=== PATIENT | female | born 1960 | race Asian ===

== ENCOUNTER → 2018-10-31 10:40 | Outpatient (CLI) | payer OTHER, SELFPAY ==
[2018-10-31 10:41] VITALS: BMI 21.6
--- NOTE | 2018-10-31 10:43 | RAD_ITS ---
STUDY: X-RAY - LEFT HAND REASON FOR EXAM: Female, 58 years old. Pain. TECHNIQUE: 3 view(s) of the hand. COMPARISON: None. FINDINGS: Normal radiocarpal articulation. Normal distal radioulnar joint. Normal visualized carpal bones. Normal carpal articulations Normal carpometacarpal articulation of the thumb. Normal second through fifth carpometacarpal joints. Normal metacarpi. Normal metacarpophalangeal joint of the thumb. Normal interphalangeal joint of the thumb. Normal proximal and distal phalanges of the thumb. Normal metacarpophalangeal joints of the second through fifth fingers. Normal proximal and distal interphalangeal joints of the second through fifth fingers. Normal phalanges of the second through fifth fingers. The soft tissue structures are unremarkable. RAD/Hand Min 3 Views IMPRESSION: Normal x-ray examination of the hand. Electronically Signed: Yan Yen, at 11:02 EDT , Service support ,
== END ==
PROVIDERS: Referring Provider Physician Assistant; Visit Provider Physician Assistant
DX: S63.611A Unspecified sprain of left index finger, initial encounter (principal); X58.XXXA Exposure to other specified factors, initial encounter; Y93.9 Activity, unspecified; Y92.9 Unspecified place or not applicable; Y99.9 Unspecified external cause status
CPT/HCPCS: 73130

== ENCOUNTER → 2018-11-22 11:26 | Outpatient (CLI) | payer OTHER, SELFPAY ==
[2018-10-31 10:41] VITALS: BMI 21.6
[2018-11-22 14:05] LABS: Absolute Lymphocyte Count 1.87 X10^3/uL (0.83-4.51); Absolute Neutrophil Count 2.2 X10^3/uL (2.0-7.7); Basophil# 0.02 X10^3/uL; Basophil% 0.4 % (0-1); Eosinophil# 0.03 X10^3/uL; Eosinophils% 0.7 % (0-5); Hematocrit 36.2 % (37-47); Hemoglobin 11.5 g/dL (12.0-15.0); Lymphocyte # 1.87 X10^3/ul (4.0); Lymphocyte % 41.9 % (19-41); Mean Corp Hgb Conc 31.8 g/dL (32-36); Mean Corpuscular Hgb 29.3 pg (27.0-32.0); Mean Corpuscular Volume 92.3 fL (81-99); Mean Platelet Vol. 10.2 fl (6.2-12.0); Monocyte# 0.31 X10^3/uL; NRBC Flagged by Analyzer 0 % (0-5); Neutrophil # 2.22 X10^3/uL (2.7-7.7); Neutrophil % 49.8 % (47-70); Platelet Count 174 K/mm3 (150-450); RBC Distribution Width CV 11.9 % (11.6-14.6); RBC Distribution Width SD 40.3 fl (35.1-43.9); Red Blood Count 3.92 M/mm3 (4.2-5.4); White Blood Count 4.5 K/mm3 (4.4-11.0)
[2018-11-22 14:21] LABS: Vitamin D,25 Hydroxy 25.2 ng/mL (29.95-100.01)
[2018-11-22 14:31] LABS: ALB/GLOB Ratio 1.1 RATIO (0.9-2.4); AST(SGOT) 20 U/L (15-37); Alanine Aminotransfer ALT/SGPT 27 U/L (13-56); Albumin, Serum 3.9 g/dL (3.2-5.0); Alkaline Phosphatase 87 U/L (45-117); Anion Gap 6 (5-15); BUN 23 mg/dL (7-18); BUN/Creat Ratio 28.6 RATIO (10-20); Calcium,Total 8.7 mg/dL (8.5-10.1); Chloride 108 mmol/L (98-107); Cholesterol 203 mg/dL (200); EST Glomerular Filtration Rate 78 mL/min (>60); Est Glom Filt Rate - Afr Amer 95 mL/min (>60); Globulin 3.7 g/dL (2.2-4.2); Glucose 97 mg/dL (74-106); High Density Lipoprotein 38 mg/dL; Protein, Total 7.6 g/dL (6.4-8.2); Sodium Level 141 mmol/L (136-145); Thyroid Stim Hormone (TSH) 3.28 uIU/mL (0.358-3.74); Triglycerides 232 mg/dL; Very Low Density Lipoprotein 46 mg/dL (5-40)
== END ==
PROVIDERS: Family Provider Family Medicine; PCP Family Medicine; Referring Provider Family Medicine; Visit Provider Family Medicine
DX: R30.0 Dysuria (principal); R12 Heartburn; Z13.220 Encounter for screening for lipoid disorders; Z13.29 Encounter for screening for other suspected endocrine disorder; Z13.21 Encounter for screening for nutritional disorder
CPT/HCPCS: 36415; 80053; 80061; 82306; 84443; 85025; 87086; 87088

== ENCOUNTER → 2019-01-23 08:26 | Outpatient (CLI) | payer OTHER, SELFPAY ==
[2018-10-31 10:41] VITALS: BMI 21.6
--- NOTE | 2019-01-23 08:31 | RAD_ITS ---
STUDY: X-RAY - ESOPHAGUS (BARIUM SWALLOW) WITH FLUOROSCOPY REASON FOR EXAM: Female, 58 years old. This patient. Gastroesophageal reflux. TECHNIQUE: 18 view(s) of the esophagus were obtained following swallowing of barium. FLUOROSCOPY TIME (if supplied): (0:31) minutes/seconds COMPARISON: None. FINDINGS: There is no demonstrated esophageal foreign body. There is no demonstrated stricture or mucosal abnormality. Normal gastroesophageal junction, without a demonstrated hiatal hernia. The patient ingested a 12 mm tablet of barium without any difficulty. Normal visualized aortic arch and descending thoracic aorta. Normal visualized pulmonary parenchyma. Normal visualized osseous structures of the thorax. RAD/Esophagus Only IMPRESSION: Normal plain film x-ray examination (barium swallow) of the esophagus. Electronically Signed: Yan Yen, at 15:18 EST , Service support ,
== END ==
PROVIDERS: Family Provider Family Medicine; PCP Family Medicine; Referring Provider Internal Medicine Gastroenterology; Visit Provider Internal Medicine Gastroenterology
DX: R12 Heartburn (principal)
CPT/HCPCS: 74220

== ENCOUNTER 2023-01-15 11:14 | Emergency (ER) | payer OTHER, SELFPAY ==
[2023-01-15 11:15] VITALS: BP 145/96; PULSE 108; RESP 16; TEMP 36.3; O2SAT 99; BMI 23.4
--- NOTE | 2023-01-15 11:47 | EX.ED.GENINJ ---
HPI <NINO Castillo - Last Filed: 01/15/23 12:04> History of Present Illness Chief Complaint: Laceration Narrative Narrative: 62-year-old female works at the [employer] and was chopping onions when she sustained a laceration to her left middle finger. Bleeding is controlled. No weakness or paresthesias. Last tetanus unknown. She is right-hand dominant. PFSH <NINO Castillo - Last Filed: 01/15/23 12:04> [facility] Medical History unable to obtain Allergy/AdvReac Type Severity Reaction Status Date / Time No Known Allergies Allergy Verified 01/15/23 11:18 Social History Smoking Status: Never smoker ROS <NINO Castillo - Last Filed: 01/15/23 12:04> ROS ED ROS Narrative Neuro: Negative for motor/sensory dysfunction. Skin: Positive for wound. Musc: Negative for joint pain, swelling. Heme: Negative for easy bruising, bleeding, lymphadenopathy. EXAM <NINO Castillo Last Filed: 01/15/23 12:04> Physical Exam Narrative Exam Narrative: CONST: Patient sitting in no acute distress. EYES: Normal inspection. EXTREMITIES: Laceration of left middle finger?vertical laceration of the nail along the edge. The nail still firmly adhered and there is no subungual hematoma. There is also a approximated flap laceration along the radial aspect of the nail fold. There is no active bleeding, full range of motion of all joints, no bony tenderness, brisk cap refill. NEURO: Oriented x4. PSYCH: Normal affect. Const Vital Signs: 01/15/23 11:15 Temperature 97.4 F L Temperature Source Temporal Pulse Rate 108 H Respiratory Rate 16 Blood Pressure 145/96 H Blood Pressure Mean 112 Pulse Ox 99 Oxygen Delivery Method Room Air <Dr. Arvind Penn, DO - Last Filed: 01/15/23 12:22> Physical Exam Const Vital Signs: 01/15/23 11:15 Temperature 97.4 F L Temperature Source Temporal Pulse Rate 108 H Respiratory Rate 16 Blood Pressure 145/96 H Blood Pressure Mean 112 Pulse Ox 99 Oxygen Delivery Method Room Air MDM <NINO Castillo - Last Filed: 01/15/23 12:04> MDM MDM Narrative Medical decision making narrative: Patient has a workplace injury with a laceration to her left middle finger. There is a well adhered flap laceration of the distal finger in a near nail laceration along the lateral aspect of the nail. The nail is firmly adhered. It does not need removed or repaired. She is neurovascularly intact and does not require x-rays. Wound was cleansed and bandaged as it is not amenable to sutures. Tetanus was updated. She was given limited use of left hand for 1 week and will follow-up with occupational health. She was discharged in stable condition. <Dr. Arvind Penn, DO - Last Filed: 01/15/23 12:22> [facility] MDM Narrative Medical decision making narrative: Patient has a workplace injury with a laceration to her left middle finger. There is a well adhered flap laceration of the distal finger in a near nail laceration along the lateral aspect of the nail. The nail is firmly adhered. It does not need removed or repaired. She is neurovascularly intact and does not require x-rays. Wound was cleansed and bandaged as it is not amenable to sutures. Tetanus was updated. She was given limited use of left hand for 1 week and will follow-up with occupational health. She was discharged in stable condition. This patient was seen with a PA/PUBLIC ADMINISTRATION PROFESSOR Individually assessed they patient including history and physical. I have reviewed everything on the chart that is available and agree with the documentation provided by the PA/PUBLIC ADMINISTRATION PROFESSOR including discussion about the assessment, treatment plan, discussion, and return precautions. Patient has flap laceration on the distal nail. Nail is adhered. No significant bleeding. No bony tenderness. I do not believe we need any imaging. Patient does not need sutures. Tetanus updated today. Wound care instructions and return precaution discussed. Discharge Plan Triage Chief Complaint: Laceration ED Midlevel Provider: Antonietta Thapa ED Provider: Arvind Penn Dx/Rx/DC Orders Clinical Impression: Laceration of left middle finger Instructions: ED Laceration Extremity Primary Care Provider: Otto Wallace Referrals: NOT,DEFINED [Non-Staff] - Activity Restrictions/Additional Instructions: Keep clean and covered until it heals. Follow-up with occupational health Disposition Disposition: Home, Self Care
[2023-01-15] MEDS: Ibuprofen 600 MG Tablet PO (11:55)
[2023-01-15] MEDS: Diphth,Pertuss(Acell),Tet Vac 0.5 ML Vial IM (11:56)
== END 2023-01-15 12:27 | disposition home or self-care (01) ==
PROVIDERS: Emergency Provider Student in an Organized Health Care Education/Training Program; PCP Family Medicine; Visit Provider Student in an Organized Health Care Education/Training Program
DX: S61.213A Laceration without foreign body of left middle finger without damage to nail, initial encounter (principal); Z23 Encounter for immunization; X58.XXXA Exposure to other specified factors, initial encounter
CPT/HCPCS: 90471; 90715; 99282

== ENCOUNTER → 2023-03-15 | Outpatient (CLI) | payer OTHER, SELFPAY ==
--- NOTE | 2023-03-15 12:42 | RAD_ITS ---
INDICATION: NASAL CONGESTION EXAMINATION/TECHNIQUE: X-RAY - XR Sinuses Paranasal Min 3 Views COMPARISON: No relevant prior comparison study available FINDINGS: Mild mucosal thickening of the left maxillary sinus. There are no air-fluid levels. Soft tissue density overlying the right globe. Right frontal sinus better evaluated by CT scan The regional bones are grossly intact. RAD/Sinuses min 3 Views IMPRESSION: 1. Mild mucosal thickening of the left maxillary sinus. 2. Soft tissue density/mass overlying the right globe and right frontal sinus. Further evaluation with CT scan of the sinuses might be of value. Electronically Signed: Ed Zamorano MD at 13:12 EST ,
[2023-03-15 15:32] LABS: Absolute Lymphocyte Count 2.78 X10^3/uL (0.83-4.51); Basophil# 0.01 X10^3/uL; Basophil% 0.2 % (0-1); Eosinophil# 0.05 X10^3/uL; Hematocrit 36.4 % (37-47); Hemoglobin 11.5 g/dL (12.0-15.0); Lymphocyte # 2.78 X10^3/ul (0.83-4.51); Lymphocyte % 53.3 % (19-41); Mean Corp Hgb Conc 31.6 g/dL (32-36); Mean Corpuscular Hgb 28.8 pg (27.0-32.0); Mean Platelet Vol. 9.4 fl (6.2-12.0); Monocyte# 0.39 X10^3/uL; Monocyte% 7.5 % (0-10); NRBC Flagged by Analyzer 0 % (0-5); Neutrophil # 1.98 X10^3/uL (2.7-7.7); Neutrophil % 37.8 % (47-70); Platelet Count 217 K/mm3 (150-450); RBC Distribution Width CV 12.3 % (11.6-14.6); RBC Distribution Width SD 40.6 fl (35.1-43.9); White Blood Count 5.2 K/mm3 (4.4-11.0)
[2023-03-15 15:58] LABS: Erythrocyte Sedimentation Rate 24 mm/hr (0-30)
[2023-03-15 16:11] LABS: Vitamin D,25 Hydroxy 35.3 ng/mL
[2023-03-15 16:28] LABS: Anion Gap 5 (5-15); BUN 14 mg/dL (7-18); Calcium,Total 9.4 mg/dL (8.5-10.1); Chloride 109 mmol/L (98-107); Creatinine, Serum 0.93 mg/dL (0.55-1.02); EST Glomerular Filtration Rate 65 mL/min (>60); Est Glom Filt Rate - Afr Amer 79 mL/min (>60); Glucose 81 mg/dL (74-106); Potassium 3.7 mmol/L (3.5-5.1); Sodium Level 140 mmol/L (136-145); Thyroid Stim Hormone (TSH) 1.44 uIU/mL (0.358-3.74)
== END | disposition home or self-care (01) ==
PROVIDERS: PCP Family Medicine; Referring Provider Family Medicine; Visit Provider Family Medicine
DX: R09.81 Nasal congestion (principal); R42 Dizziness and giddiness; E55.9 Vitamin D deficiency, unspecified
CPT/HCPCS: 36415; 70220; 80048; 82306; 84443; 85025; 85652

== ENCOUNTER → 2023-04-07 | Outpatient (CLI) | payer OTHER, SELFPAY ==
--- NOTE | 2023-04-07 07:47 | CT_ITS ---
STUDY: CT FACIAL BONES WITH CONTRAST REASON FOR EXAM: Female, 63 years old. Other specified disorders of brain. Soft tissue density seen on radiographs. RADIATION DOSAGE (If Supplied By Facility): CTDIvol = ( 29.38 ) mGy, DLP = ( 723.76 ) mGycm TECHNIQUE: The patient was scanned in a multi detector CT scanner. Transaxial imaging was performed following the intravenous administration of IV 100mL Isovue-370. Sagittal and coronal images were reconstructed. Individualized dose optimization techniques were used for this CT. COMPARISON: None. FINDINGS: Normal soft tissue structures. Normal orbital ritchie and orbital contents. Normal nasal bones and anterior nasal spine. Normal facial bones. There is no demonstrated fracture. Normal visualized paranasal sinuses. CT/Sinus/Facial Bone WITH Contras IMPRESSION: Normal enhanced CT of the facial bones. Electronically Signed: Yan Yen MD at 9:44 EST ,
== END | disposition home or self-care (01) ==
LOC: CT 07:46
PROVIDERS: PCP Family Medicine; Referring Provider Family Medicine; Visit Provider Family Medicine
DX: G93.89 Other specified disorders of brain (principal)
CPT/HCPCS: 70487; Q9967

== ENCOUNTER → 2025-01-15 | Outpatient (CLI) | payer OTHER, SELFPAY ==
[2025-01-15 09:59] LABS: Mucous, Urine 0 SEEN /hpf (<or=2+)
[2025-01-15 12:25] LABS: Hematocrit 36.7 % (37-47); Hemoglobin 11.7 g/dL (12.0-15.0); Mean Corp Hgb Conc 31.9 g/dL (32-36); Mean Corpuscular Volume 90.8 fL (81-99); Mean Platelet Vol. 10.4 fl (6.2-12.0); Platelet Count 175 K/mm3 (150-450); RBC Distribution Width CV 12.2 % (11.6-14.6); RBC Distribution Width SD 40.7 fl (35.1-43.9); Red Blood Count 4.04 M/mm3 (4.2-5.4); White Blood Count 4.0 K/mm3 (4.4-11.0)
[2025-01-15 12:28] LABS: Color, Urine Yellow (Yellow); Glucose, Dipstick Normal (Normal); Ketone-Dipstick Negative (Negative); Leukocyte Esterase-Dipstick Negative /ul (Negative); Nitrite-Dipstick Negative (Negative); Occult Blood-Urine 25 /ul (Negative); Protein-Dipstick 15 mg/dl (Negative); Specific Gravity, Urine 1.020 (1.002-1.030); Urine Bilirubin Dipstick Negative (Negative)
[2025-01-15 12:36] LABS: Squamous Epithelial Cells - UA 0-5 SEEN /hpf (5-10)
[2025-01-15 12:37] LABS: Red Blood Cells-Urine 0-5 SEEN /hpf (0-5)
[2025-01-15 13:31] LABS: AST(SGOT) 21 U/L (<=31); Alanine Aminotransfer ALT/SGPT 16 U/L (<=34); Albumin, Serum 4.5 g/dL (3.4-4.8); Alkaline Phosphatase 68 U/L (35-104); Anion Gap 12 (5-15); BUN 15 mg/dL (4-19); BUN/Creat Ratio 18.7 RATIO (10-20); Calcium,Total 9.5 mg/dL (7.6-11.0); Carbon Dioxide 23.9 mmol/L (21.0-32.0); Chloride 106 mmol/L (98-108); Cholesterol 260 mg/dL (<=200); Globulin 3.2 g/dL (2.2-4.2); Glucose 103 mg/dL (70-99); Low Density Lipoprotein Calc. 191 mg/dL; Potassium 4.0 mmol/L (3.3-5.1); Triglycerides 113 mg/dL; Very Low Density Lipoprotein 23 mg/dL (5-40); Vitamin D,25 Hydroxy 33.6 ng/mL (30-100); cholesterol:hdl ratio screen 5.28
== END | disposition home or self-care (01) ==
PROVIDERS: PCP Family Medicine; Visit Provider Family Medicine
DX: R35.0 Frequency of micturition (principal); R53.83 Other fatigue; Z13.220 Encounter for screening for lipoid disorders; Z83.79 Family history of other diseases of the digestive system
CPT/HCPCS: 36415; 80053; 80061; 81001; 82306; 84443; 85027; 87086; 87088

== ENCOUNTER → 2025-02-14 | Outpatient (CLI) | payer OTHER, SELFPAY ==
--- NOTE | 2025-02-14 14:35 | CT_ITS ---
PROCEDURE: LIMITED CHEST CT CARDIAC ONLY 02/14/2025 REASON FOR EXAM: ELEVATED LIPIDS TECHNIQUE: Procedure Code: [id number] Modality: CT Procedure: LIMITED CHEST CT CARDIAC ONLY Coronal and Sagittal reconstruction series were provided. CONTRAST: None. One or more dose reduction techniques were used (e.g., Automated exposure control, adjustment of the mA and/or kV according to patient size, use of iterative reconstruction technique). RADIATION DOSE SUMMARY: CTDlvol: 12.19 mGy DLP: 195 mGycm COMPARISON: None. FINDINGS: Bilateral breast implants are noted. Left adrenal nodule is noted measuring 1.5 cm, probably benign adenoma. No follow-up is needed. Minimal bilateral basilar atelectatic pulmonary changes. Mild diffuse spondylosis. Normal unenhanced main pulmonary artery and right and left pulmonary arteries. Normal bilateral peripheral pulmonary arteries. Normal thoracic aorta and visualized great vessels. There is no demonstrated aortic aneurysm. Normal heart and pericardium. Normal mediastinum. Normal hilar regions. Normal visualized trachea and bronchi. The remaining lungs are well expanded. Normal remaining pulmonary parenchyma. Normal pleura. Normal remaining visualized upper abdomen. CT/Limited Chest CT Cardiac Only IMPRESSION: Bilateral breast implants are noted. Left adrenal nodule is noted measuring 1.5 cm, probably benign adenoma. No fol low-up is needed. Minimal bilateral basilar atelectatic pulmonary changes. Mild diffuse spondylosis. Reading Location: [place] [id number]
--- OUTSIDE RECORDS SUMMARY | 2025-02-14 14:37 | XMS RPT_ITS | CCD ---
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 Name Role Phone Marques Wallace Primary Care Unavailable Marques Wallace Attending Unavailable Marques Wallace Referring Unavailable Marques Wallace Primary Care Unavailable Marques Wallace Attending Unavailable Marques Wallace Referring Unavailable Arvind Penn Attending Unavailable Marques Wallace Primary Care Unavailable Medications Current Medications Medication Drug Class(es) Dates Sig (Normalized) Sig (Original) esomeprazole 20 mg delayed release oral capsule (2 sources) Proton Pump Inhibitor Start: 10-31-2018 take 1 capsule by mouth once daily Esomeprazole Magnesium (Nexium) 20 mg capsule,delayed release(DR/EC) Active 20 MG PO DAILY October 30, 2018 11:00pm Problems Active Problems Problem Classification Problem Date Documented Da te Episodic/Chronic Open wounds of extremities (2 sources) Laceration of left middle finger; Translations: [Laceration without foreign body of left middle finger without damage to nail, initial encounter] Onset: 12-01-2023 04-03-2023 Episodic Other connective tissue disease (2 sources) Hand pain; Translations: [Pain in left hand] 10-31-2018 Episodic Other eye disorders (2 sources) Pain around eye; Translations: [Other specified disorders of eyelid] 10-31-2018 Episodic Other nervous system disorders (1 source) Other specified disorders of brain; Translations: [Other specified disorders of brain] Onset: 10-09-2023 Chronic Past or Other Problems Problem Classification Problem Date Documented Da te Episodic/Chronic Other upper respiratory disease (1 source) Nasal congestion; Translations: [Nasal congestion] Onset: 03-20-2023 Episodic Results Test Name Value Interpretation Reference Range Facility Sinus/Facial Bone WITH Contr ason 04-07-2023 Sinus/Facial Bone WITH Contras [facility] Imaging Services [address] [place] [address] Sinus/Facial Bone WITH Contras MR#: [id number] Acct: [id number] Name: JOE MCCOY Rep #: [id number] : 1960 F 63 From: Yan metzger MD PCP: Dr. Otto Wallace MD Status: REG CLI Study: Sinus/Facial Bone WITH Contras Date of Exam: 0 04/07/23 Exam# [id number] Ordering Dr: Otto Wallace MD [id number] STUDY: CT FACIAL BONES WITH CONTRAST REASON FOR EXAM: Female, 63 years old. Other specified disorders of brain. Soft tissue density seen on radiographs. RADIATION DOSAGE (If Supplied By Facility): CTDIvol = ( 29.38 ) mGy, DLP = ( 723.76 ) mGycm TECHNIQUE: The patient was scanned in a multi detector CT scanner. Transaxial imaging was performed following the intravenous administration of IV 100mL Isovue-370. Sagittal and coronal images were reconstructed. Individualized dose optimization techniques were used for this CT. COMPARISON: None. FINDINGS: Normal soft tissue structures. Normal orbital ritchie and orbital contents. Normal nasal bones and anterior nasal spine. Normal facial bones. There is no demonstrated fracture. Normal visualized paranasal sinuses. CT/Sinus/Facial Bone WITH Contras IMPRESSION: Normal enhanced CT of the facial bones. Electronically Signed: Yan Yen MD at 9:44 EST , CC: Dr. Otto Wallace MD Well Service Derrick Worker: Signed Normal [facility] Absolute lymphocyte countOrd ered By: Otto Wallace on 03-15-2023 Lymphocytes Auto (Unsp spec) [#/Vol] 2.78 10*3/uL 0.83-4.51 [facility] Automated lymphocyte count a s percentage of total leukocytesOrdered By: Otto Wallace on 03-15-2023 Lymphocytes/100 WBC Auto (Unsp spec) 53.3 % 19-41 [facility] Basic Metabolic Profile (BMP )on 03-15-2023 BUN/CRE 15.0 RATIO Normal 10-20 [facility] Comment on above: Performed By: #### L 101.9900, L506.1000, L501.9520, L500.2500, L100.0100 #### [facility] Laboratory [address] [place], [address] CA,Total 9.4 mg/dL Normal 8.5-10.1 [facility] Comment on above: Performed By: #### L 101.9900, L506.1000, L501.9520, L500.2500, L100.0100 #### [facility] Laboratory [address] [place], [address] Chloride [Moles/Vol] 109 mmol/L High 98-107 [facility] Comment on above: Performed By: #### L 101.9900, L506.1000, L501.9520, L500.2500, L100.0100 #### [facility] Laboratory [address] [place], [address] CO2 [Moles/Vol] 26.0 mmol/L Normal 21.0-32.0 [facility] Comment on above: Performed By: #### L 101.9900, L506.1000, L501.9520, L500.2500, L100.0100 #### [facility] Laboratory [address] [place], [address] Creatinine [Mass/Vol] 0.93 mg/dL Normal 0.55-1.02 [facility] Comment on above: Result Comment: The validity of the calculated GFR GFRAA in patients over 70 years has not been determined. Clinical correlation is essential. Performed By: #### L 101.9900, L506.1000, L501.9520, L500.2500, L100.0100 #### [facility] Laboratory [address] [place], [address] EST GFR - AA 79 mL/min Normal >60 [facility] Comment on above: Result Comment: Afri can Citizen Of [place] GFR Calc Performed By: #### L 101.9900, L506.1000, L501.9520, L500.2500, L100.0100 #### [facility] Laboratory [address] [place], [address] GAP 5 Normal 5-15 [facility] Comment on above: Performed By: #### L 101.9900, L506.1000, L501.9520, L500.2500, L100.0100 #### [facility] Laboratory [address] [place], [address] GFR/1.73 sq M.predicted among non-blacks MDRD (S/P/Bld) [Vol rate/Area] 65 mL/min/{1.73_m2} Normal >60 [facility] Comment on above: Result Comment: Non- GFR Calc Performed By: #### L 101.9900, L506.1000, L501.9520, L500.2500, L100.0100 #### [facility] Laboratory [address] [place], [address] Glucose [Mass/Vol] 81 mg/dL Normal 74-[address] [facility] Comment on above: Performed By: #### L 101.9900, L506.1000, L501.9520, L500.2500, L100.0100 #### [facility] Laboratory [address] [place], [address] Potassium [Moles/Vol] 3.7 mmol/L Normal 3.5-5.1 [facility] Comment on above: Performed By: #### L 101.9900, L506.1000, L501.9520, L500.2500, L100.0100 #### [facility] Laboratory [address] [place], [address] Sodium [Moles/Vol] 140 mmol/L Normal 136-[address] [facility] Comment on above: Performed By: #### L 101.9900, L506.1000, L501.9520, L500.2500, L100.0100 #### [facility] Laboratory [address] [place], [address] Urea nitrogen [Mass/Vol] 14 mg/dL Normal 7-18 [facility] Comment on above: Performed By: #### L 101.9900, L506.1000, L501.9520, L500.2500, L100.0100 #### [facility] Laboratory [address] [place], [address] Basophil percentageOrdered B y: Otto Wallace on 03-15-2023 Basophils/100 WBC (Bld) 0.2 % 0-1 [facility] Chloride [Moles/Vol] 109 mmol/L 98-107 [facility] Eosinophils/100 WBC (Bld) 1.0 % 0-5 [facility] Glucose [Mass/Vol] 81 mg/dL 74-[address] [facility] Hemoglobin (Bld) [Mass/Vol] 11.5 g/dL 12.0-15.0 [facility] Monocytes/100 WBC (Bld) 7.5 % 0-10 [facility] Neutrophils (Bld) [#/Vol] 2.0 10*3/uL 2.0-7.7 [facility] Neutrophils/100 WBC (Bld) 37.8 % 47-70 [facility] Potassium [Moles/Vol] 3.7 mmol/L 3.5-5.1 [facility] Sodium [Moles/Vol] 140 mmol/L 136-[address] [facility] WBC (Bld) [#/Vol] 5.2 10*3/uL 4.4-11.[address] [facility] CBC W/Diff, Automatedon 02-21 Absolute Lymph 2.78 X10 3/uL Normal 0.83-4.51 [facility] Comment on above: Performed By: #### L 101.9900, L506.1000, L501.9520, L500.2500, L100.0100 #### [facility] Laboratory [address] [place], [address] Absolute Neut 2.0 X10 3/uL Normal 2.0-7.7 [facility] Comment on above: Performed By: #### L 101.9900, L506.1000, L501.9520, L500.2500, L100.0100 #### [facility] Laboratory [address] [place], [address] Basophils/100 WBC (Bld) 0.2 % Normal 0-1 [facility] Comment on above: Performed By: #### L 101.9900, L506.1000, L501.9520, L500.2500, L100.0100 #### [facility] Laboratory [address] [place], [address] Eosinophils/100 WBC (Bld) 1.0 % Normal 0-5 [facility] Comment on above: Performed By: #### L 101.9900, L506.1000, L501.9520, L500.2500, L100.0100 #### [facility] Laboratory [address] [place], [address] Erythrocyte distribution width (RBC) [Ratio] 12.3 % Normal 11.6-14.6 [facility] Comment on above: Performed By: #### L 101.9900, L506.1000, L501.9520, L500.2500, L100.0100 #### [facility] Laboratory [address] [place], [address] Hematocrit (Bld) [Volume fraction] 36.4 % Low 37-47 [facility] Comment on above: Performed By: #### L 101.9900, L506.1000, L501.9520, L500.2500, L100.0100 #### [facility] Laboratory [address] [place], [address] Hemoglobin (Bld) [Mass/Vol] 11.5 g/dL Low 12.0-15.0 [facility] Comment on above: Performed By: #### L 101.9900, L506.1000, L501.9520, L500.2500, L100.0100 #### [facility] Laboratory [address] [place], [address] IG% 0.200 Normal 0.0-0.9 [facility] Comment on above: Result Comment: IG% - Immature Granulocytes (promyelocytes, myelocytes and metamyelocytes) > 1% indicates that a LEFT SHIFT is Present. Performed By: #### L 101.9900, L506.1000, L501.9520, L500.2500, L100.0100 #### [facility] Laboratory [address] [place], [address] Lymphocytes/100 WBC (Bld) 53.3 % High 19-41 [facility] Comment on above: Performed By: #### L 101.9900, L506.1000, L501.9520, L500.2500, L100.0100 #### [facility] Laboratory [address] [place], [address] MCH (RBC) [Entitic mass] 28.8 pg Normal 27.0-32.0 [facility] Comment on above: Performed By: #### L 101.9900, L506.1000, L501.9520, L500.2500, L100.0100 #### [facility] Laboratory [address] [place], [address] MCHC (RBC) [Mass/Vol] 31.6 g/dL Low 32-36 [facility] Comment on above: Performed By: #### L 101.9900, L506.1000, L501.9520, L500.2500, L100.0100 #### [facility] Laboratory [address] [place], [address] MCV (RBC) [Entitic vol] 91.0 fL Normal 81-99 [facility] Comment on above: Performed By: #### L 101.9900, L506.1000, L501.9520, L500.2500, L100.0100 #### [facility] Laboratory [address] [place], [address] Monocytes/100 WBC (Bld) 7.5 % Normal 0-10 [facility] Comment on above: Performed By: #### L 101.9900, L506.1000, L501.9520, L500.2500, L100.0100 #### [facility] Laboratory [address] [place], [address] Neutrophils/100 WBC (Bld) 37.8 % Low 47-70 [facility] Comment on above: Performed By: #### L 101.9900, L506.1000, L501.9520, L500.2500, L100.0100 #### [facility] Laboratory [address] [place], [address] Nucleated RBC (Bld) [#/Vol] 0 10*3/uL Normal 0-5 [facility] Comment on above: Performed By: #### L 101.9900, L506.1000, L501.9520, L500.2500, L100.0100 #### [facility] Laboratory [address] [place], [address] Platelet mean volume (Bld) [Entitic vol] 9.4 fL Normal 6.2-12.0 [facility] Comment on above: Performed By: #### L 101.9900, L506.1000, L501.9520, L500.2500, L100.0100 #### [facility] Laboratory [address] [place], [address] Platelets (Bld) [#/Vol] 217 10*3/uL Normal 150-450 [facility] Comment on above: Performed By: #### L 101.9900, L506.1000, L501.9520, L500.2500, L100.0100 #### [facility] Laboratory [address] [place], [address] RBC (Bld) [#/Vol] 4.00 10*6/uL Low 4.2-5.4 [facility] Comment on above: Performed By: #### L 101.9900, L506.1000, L501.9520, L500.2500, L100.0100 #### [facility] Laboratory [address] [place], [address] RDW SD 40.6 fl Normal 35.1-43.9 [facility] Comment on above: Performed By: #### L 101.9900, L506.1000, L501.9520, L500.2500, L100.0100 #### [facility] Laboratory [address] [place], [address] WBC (Bld) [#/Vol] 5.2 10*3/uL Normal 4.4-11.[address] [facility] Comment on above: Performed By: #### L 101.9900, L506.1000, L501.9520, L500.2500, L100.0100 #### [facility] Laboratory [address] [place], [address] Determination of erythrocyte mean corpuscular volume (MCV)Ordered By: Otto Wallace on 03-15-2023 MCV (RBC) [Entitic vol] 91.0 fL 81-99 [facility] Erythrocyte Sed Rateon 03-15 SED RATE 24 mm/hr Normal 0-30 [facility] Comment on above: Performed By: #### L 101.9900, L506.1000, L501.9520, L500.2500, L100.0100 #### [facility] Laboratory [address] [place], [address] Erythrocyte distribution wid th ratioOrdered By: Otto Wallace on 03-15-2023 Erythrocyte distribution width (RBC) [Ratio] 12.3 % 11.6-14.6 [facility] Erythrocyte distribution wid th standard deviationOrdered By: Otto Wallace on 03-15-2023 Erythrocyte distribution width (RBC) [Entitic vol] 40.6 fL 35.1-43.9 [facility] Erythrocyte sedimentation ra teOrdered By: Otto Wallace on 03-15-2023 ESR (Bld) [Velocity] 24 mm/h 0-30 [facility] Hematocrit Auto (Bld) [Volum e fraction]Ordered By: Otto Wallace on 03-15-2023 Hematocrit (Bld) [Volume fraction] 36.4 % 37-47 [facility] Immature granulocytes/100 WB C Auto (Bld)Ordered By: Otto Wallace on 03-15-2023 Immature granulocytes/100 WBC (Bld) 0.200 % 0.0-0.9 [facility] Comment on above: IG% - Immature Granu locytes (promyelocytes, myelocytes and metamyelocytes) > 1% indicates that a LEFT SHIFT is Present. Laboratory - Chemistry and C hemistry - challengeOrdered By: Otto Wallace on 03-15-2023 CO2 [Moles/Vol] 26.0 mmol/L 21.0-32.0 [facility] Urea nitrogen/Creatinine [Mass ratio] 15.0 mg/mg 10-20 [facility] Laboratory - Hematology and Cell countsOrdered By: Otto Wallace on 03-15-2023 MCH (RBC) [Entitic mass] 28.8 pg 27.0-32.0 [facility] MCHC (RBC) [Mass/Vol] 31.6 g/dL 32-36 [facility] Nucleated RBC/100 WBC (Bld) [Ratio] 0 % 0-5 [facility] Platelets (Bld) [#/Vol] 217 10*3/uL 150-450 [facility] No Panel InformationOrdered By: Otto Wallace on 03-15-2023 Estimated GFR (MDRD) Amer 79 mL/min >60 [facility] Comment on above: GFR Calc Estimated GFR (MDRD) Non-Af Amer 65 mL/min >60 [facility] Comment on above: Non- GFR Calc Vitamin D 25-Hydroxy 35.3 ng/mL [facility] Comment on above: Vitamin D 25(OH) Sta tus Range Deficiency <20 ng/mL (50nmol/L) Insufficiency 20 - 30 ng/mL (50 - 75 nmol/L) Sufficiency 30 - 100 ng/mL (75 - 250 nmol/L) Toxicity >100 ng/mL (>250 nmol/L) Platelet mean volume Kristian-Ec ker (Bld) [Entitic vol]Ordered By: Otto Wallace on 03-15-2023 Platelet mean volume (Bld) [Entitic vol] 9.4 fL 6.2-12.0 [facility] RBC Auto (Bld) [#/Vol]Ordere d By: Otto Wallace on 03-15-2023 RBC (Bld) [#/Vol] 4.00 10*6/uL 4.2-5.4 [facility] Serum or plasma calcium roxanne urement (mass/volume)Ordered By: Otto Wallace on 03-15-2023 Calcium [Mass/Vol] 9.4 mg/dL 8.5-10.[address] [facility] Serum or plasma creatinine m easurement (mass/volume)Ordered By: Otto Wallace on 03-15-2023 Creatinine [Mass/Vol] 0.93 mg/dL 0.55-1.02 [facility] Comment on above: The validity of the calculated GFR & GFRAA in patients over 70 years has not been determined. Clinical correlation is essential. Serum or plasma thyroid stim ulating hormone (TSH) measurement (units/volume)Ordered By: Otto Wallace on 03-15-2023 TSH Qn 1.44 uIU/mL 0.358-3.74 [facility] Serum or plasma urea nitroge n measurement (mass/volume)Ordered By: Otto Wallace on 03-15-2023 Urea nitrogen [Mass/Vol] 14 mg/dL 7-18 [facility] Sinuses min 3 Viewson 2023 Sinuses min 3 Views [facility] Imaging Services [address] [place] [address] Sinuses min 3 Views MR#: [id number] Acct: [id number] Name: JOE MCCOY Rep #: [id number] : 1960 F 62 From: Ed Osorio PCP: Dr. Otto Wallace MD Status: REG CLI Study: Sinuses min 3 Views Date of Exam: 03/15/23 Exam# [id number] Ordering Dr: Otto Wallace MD [id number] INDICATION: NASAL CONGESTION EXAMINATION/TECHNIQU E: X-RAY - XR Sinuses Paranasal Min 3 Views COMPARISON: No relevant prior comparison study available ____ FINDINGS: Mild mucosal thickening of the left maxillary sinus. There are no air-fluid levels. Soft tissue density overlying the right globe. Right frontal sinus better evaluated by CT scan The regional bones are grossly intact. RAD/Sinuses min 3 Views IMPRESSION: 1. Mild mucosal thickening of the left maxillary sinus. 2. Soft tissue density/mass overlying the right globe and right frontal sinus. Further evaluation with CT scan of the sinuses might be of value. Electronically Signed: Ed Zamorano MD at 13:12 EST , CC: Dr. Otto Wallace MD Well Service Derrick Worker: Signed Normal [facility] Thin prep Papanicolaou smear with manual screeningOrdered By: Otto Wallace on 03-15-2023 Thin prep Papanicolaou smear with manual screening 5 5-15 [facility] Thyroid Stim Hormone (TSH)on 03-15-2023 TSH 1.44 uIU/mL Normal 0.358-3.74 [facility] Comment on above: Performed By: #### L 101.9900, L506.1000, L501.9520, L500.2500, L100.0100 #### [facility] Laboratory [address] [place], [address] Vitamin D,25 Hydroxyon 03-15 Vitamin D 25-OH 35.3 ng/mL Normal [facility] Comment on above: Result Comment: Oliva min D 25(OH) Status Range Deficiency <20 ng/mL (50nmol/L) Insufficiency 20 - 30 ng/mL (50 - 75 nmol/L) Sufficiency 30 - 100 ng/mL (75 - 250 nmol/L) Toxicity >100 ng/mL (>250 nmol/L) Performed By: #### L 101.9900, L506.1000, L501.9520, L500.2500, L100.0100 #### [facility] Laboratory [address] [place], [address] Emergency Department Summary on 01-15-2023 Emergency Department Summary [facility] Medical Records Department [address] [place] [address] Emergency Department Summary 01/15/23 MR#: [id number] Acct: [id number] Name: JOE MCCOY Rep #: [id number] : 1960 62 From: Arvind Penn DO PCP: Dr. Otto Wallace MD Status:DEP ER Location: ED HPI History of Present Illness Chief Complaint: Laceration Narrative Narrative: 62-year-old female works at the [employer] and was chopping onions when she sustained a laceration to her left middle finger. Bleeding is controlled. No weakness or paresthesias. Last tetanus unknown. She is right-hand dominant. [facility] Medical History unable to obtain Allergy/AdvReac Type Severity Reaction Status Date / Time No Known Allergies Allergy Verified 01/15/23 11:18 Social History Smoking Status: Never smoker ROS ROS ED ROS Narrative Neuro: Negative for motor/sensory dysfunction. Skin: Positive for wound. Musc: Negative for joint pain, swelling. Heme: Negative for easy bruising, bleeding, lymphadenopathy. EXAM Physical Exam Narrative Exam Narrative: CONST: Patient sitting in no acute distress. EYES: Normal inspection. EXTREMITIES: Laceration of left middle finger???vertical laceration of the nail along the edge. The nail still firmly adhered and there is no subungual hematoma. There is also a approximated flap laceration along the radial aspect of the nail fold. There is no active bleeding, full range of motion of all joints, no bony tenderness, brisk cap refill. NEURO: Oriented x4. PSYCH: Normal affect. Const Vital Signs: 01/15/23 11:15 Temperature 97.4 F L Temperature Source Temporal Pulse Rate 108 H Respiratory Rate 16 Blood Pressure 145/96 H Blood Pressure Mean 112 Pulse Ox 99 Oxygen Delivery Method Room Air Physical Exam Const Vital Signs: 01/15/23 11:15 Temperature 97.4 F L Temperature Source Temporal Pulse Rate 108 H Respiratory Rate 16 Blood Pressure 145/96 H Blood Pressure Mean 112 Pulse Ox 99 Oxygen Delivery Method Room Air MDM MDM MDM Narrative Medical decision making narrative: Patient has a workplace injury with a laceration to her left middle finger. There is a well adhered flap laceration of the distal finger in a near nail laceration along the lateral aspect of the nail. The nail is firmly adhered. It does not need removed or repaired. She is neurovascularly intact and does not require x-rays. Wound was cleansed and bandaged as it is not amenable to sutures. Tetanus was updated. She was given limited use of left hand for 1 week and will follow-up with occupational health. She was discharged in stable condition. [facility] MDM Narrative Medical decision making narrative: Patient has a workplace injury with a laceration to her left middle finger. There is a well adhered flap laceration of the distal finger in a near nail laceration along the lateral aspect of the nail. The nail is firmly adhered. It does not need removed or repaired. She is neurovascularly intact and does not require x-rays. Wound was cleansed and bandaged as it is not amenable to sutures. Tetanus was updated. She was given limited use of left hand for 1 week and will follow-up with occupational health. She was discharged in stable condition. This patient was seen with a PA/[employer] Individually assessed they patient including history and physical. I have reviewed everything on the chart that is available and agree with the documentation provided by the PA/[employer] including discussion about the assessment, treatment plan, discussion, and return precautions. Patient has flap laceration on the distal nail. Nail is adhered. No significant bleeding. No bony tenderness. I do not believe we need any imaging. Patient does not need sutures. Tetanus updated today. Wound care instructions and return precaution discussed. Discharge Plan Triage Chief Complaint: Laceration ED Midlevel Provider: Antonietta Thapa ED Provider: Arvind Penn Dx/Rx/DC Orders Clinical Impression: Laceration of left middle finger Instructions: ED Laceration Extremity Primary Care Provider: Otto Wallace Referrals: NOT,DEFINED [Non-Staff] - Activity Restrictions/Additio nal Instructions: Keep clean and covered until it heals. Follow-up with occupational health Disposition Disposition: Home, Self Care What to do if you have Problems For any increased pain, shortness of breath, bleeding, nausea or vomiting, chest pain, or any unexpected problems, contact your Primary Care Provider. Call [facility] ([phone]) or report to the closest Emergency Room. Call 911 if necessary. 01/15/23 1222 Cosigner Signature (if applicable): 01/15/23 1204 CC: Dr. Menjivar (more content not included)... Normal [facility] Vital Signs Date Time Vital Sign Value Performing Clinician Faci lity 01-15-2023 11:15-0500 Body height 160.02 cm [facility] 01-15-2023 11:15-0500 Body mass index (BMI) [Ratio] 23.4 kg/m2 [facility] 01-15-2023 11:15-0500 Body temperature 97.4 [degF] [facility] 01-15-2023 11:15-0500 Body weight 60.07 kg [facility] 01-15-2023 11:15-0500 Diastolic blood pressure 96 mm[Hg] [facility] 01-15-2023 11:15-0500 Heart rate 108 /min [facility] 01-15-2023 11:15-0500 Respiratory rate 16 /min [facility] 01-15-2023 11:15-0500 SaO2% (BldA) [Mass fraction] 99 % [facility] 01-15-2023 11:15-0500 Systolic blood pressure 145 mm[Hg] [facility] Encounters Encounter Date Encounter Type Care Provider Facility Start: 04-07-2023 End: 04-07-2023 ambulatory [facility] Work Phone: Start: 04-07-2023 End: 04-07-2023 Patient encounter procedure [facility] Scan, [facility] Work Phone: Start: 04-07-2023 End: 04-07-2023 ambulatory [facility] Facility:[facility] Start: 03-15-2023 End: 03-15-2023 ambulatory [facility] Work Phone: Start: 03-15-2023 End: 03-15-2023 Patient encounter procedure [facility] Work Phone: Start: 03-15-2023 End: 03-15-2023 ambulatory [facility] Facility:[facility] Start: 01-15-2023 End: 01-15-2023 Emergency department patient visit [facility]-Emergency Department Work Phone: Procedures Date Procedure Procedure Detail Performing Clinician Start: 04-07-2023 CT of face Start: 03-15-2023 Radiography of nasal sinuses Plan of Treatment Date Care Activity Detail Author Start: 01-15-2023 [facility] Patient Education ED Laceration Extremity [facility] Work Phone: Patient referral [facility] Work Phone: Immunizations Immunization Date Immunization Notes Care Provider Fa edwinty 01-15-2023 tetanus toxoid, redu magalie diphtheria toxoid, and acellular pertussis vaccine, adsorbed [facility] Payers Date Payer Category Payer Unknown [id number] 2023 Self-pay [id number] 2023 Unknown [id number] Private Health Insurance [facility] [id number] Unknown [id number] Unknown [id number] Unknown [id number] Social History Date Type Detail Facility Start: 10-31-2018 End: 01-15-2023 Tobacco smoking status NHIS Unknown if ever smoked [facility] Start: 1960 Sex Assigned At Female [facility] Evaluation note Note Date & Type Note Facility Evaluation note No assessment information availa ble [facility] Work Phone: Chief Complaint and Reason for Visit Chief Complaint LACERATION Other specified disorders of brain Advance Directives No Advanced Directives Records Found Advance Directive Response Recorded Date/ Time Living Will No January 15 12:12pm Power of Nailer Operator No January 15, 2023 12:12pm Summary Purpose Family History No Family History Records Found Additional Source Comments Care Teams (unrecognized sec tion and content) Team Status: Active Member Role Status Dates Dr. Otto Wallace MD Family Provider Active Dr. Otto Wallace MD Primary Care Provider Activ e Team Status: Inactive Member Role Status Dates Dr. Otto Wallace MD Primary Care Provider, Attending Provider, Referring Provider Active Team Status: Inactive Member Role Status Dates Dr. Arvind Penn DO Attending Provider, Emergency Provider Active Dr. Otto Wallace MD Primary Care Provider Activ e Goals (unrecognized section and content) Goals may be documented in a n alternate sectionGoals may be documented in an alternate section INFORMATION SOURCE (unrecogn ized section and content) DATE CREATED AUTHOR 12/03/2023 [facility] FOR RECORDS PERTAINING TO PATIENTS WHO ARE OR HAVE BEEN ENROLLED IN A CHEMICAL DEPENDENCY/SUBSTANCEABUSE PROGRAM, SOME INFORMATION MAY BE OMITTED. This clinical summary was aggregated from multiple sources. Caution should be exercised in using it in the provision of clinical care. This summary normalizes information from multiple sources, and as a consequence, information in this document may materially change the coding, format and clinical context of patient data. In addition, data may be omitted in some cases. CLINICAL DECISIONS SHOULD BE BASED ON THE PRIMARY CLINICAL RECORDS. [facility] [employer] provides no warranty or guarantee of the accuracy or completeness of information in this document.
== END | disposition home or self-care (01) ==
LOC: CT 14:33
PROVIDERS: PCP Family Medicine; Referring Provider Family Medicine; Visit Provider Family Medicine
DX: E78.5 Hyperlipidemia, unspecified (principal)
CPT/HCPCS: 75571; 76380